=== PATIENT | female | born 1960 ===

== ENCOUNTER 2016-10-13 04:35 | Emergency (ER) | payer OTHER ==
[2016-10-13 04:35] VITALS: BMI 32.1
[2016-10-13 04:42] VITALS: O2SAT 98
--- NOTE | 2016-10-13 05:27 | ED PDOC ---
HPI:Nausea, Vomiting, Diarrhea Time Seen by Provider: 10/13/16 05:21 Chief Complaint (Nursing): GI Problem Chief Complaint (Provider): Vomiting/Diarrhea History Per: Patient History/Exam Limitations: no limitations Onset/Duration Of Symptoms: Days (yesterday at 15:00) Current Symptoms Are (Timing): Still Present Have you had recent travel within the past 21 days to any of the following countries: [place], [place], [place] or [place]?: No Severity: Moderate Associated Symptoms: Chills, Nausea, Vomiting (non-bloody), Diarrhea (watery, non-bloody), Urinary Symptoms (oliguria due to dehydration), Other ((+) weakness ; (-) abdominal pain). denies: Fever Additional Complaint(s): Melani Guevara is a 56 year old female, with a past medical history of DM (Type 2) , Hypercholesterolemia, and HTN, who presents to the emergency department with complaints of non-bloody vomiting and watery diarrhea, that the patient has been experiencing since yesterday at 15:00. Associated chills, generalized weakness, and oliguria are also currently present. Denies abdominal pain or a fever. PMD: Dr. Mcmanus Past Medical History Reviewed: Historical Data, Nursing Documentation, Vital Signs Vital Signs: Last Vital Signs Temp 98.6 F 10/13/16 04:39 Pulse 124 H 10/13/16 04:39 Resp 18 10/13/16 04:39 BP 155/75 H 10/13/16 04:39 Pulse Ox 98 10/13/16 04:39 - Medical History PMH: Arthritis (Rheumatoid), Diabetes (Type 2), HTN, Hypercholesterolemia, Multiple Sclerosis, Rheumatoid Arthritis - Surgical History Surgical History: No Surg Hx - Family History Family History: States: Diabetes, Hypertension - Social History Alcohol: Occasional - Home Medications Home Medications: Ambulatory Orders Medication Instructions Recorded Acetaminophen with Codeine 2 tab PO Q4H PRN #22 tab 07/31/14 [Tylenol with Codeine No. 3 300 mg-30 mg] DiphenhydrAMINE [Benadryl] 25 mg PO Q6H PRN #10 cap 08/21/16 Cyclobenzaprine [Cyclobenzaprine 10 mg PO Q8 PRN #30 tab 09/01/16 HCl] Naproxen [Naprosyn] 500 mg PO BID PRN #30 tab 09/01/16 Ondansetron ODT [Zofran ODT] 4 mg PO Q8 PRN #12 odt 10/13/16 - Allergies Allergies/Adverse Reactions: Allergies Allergy/AdvReac Type Severity Reaction Status Date / Time No Known Allergies Allergy Verified 07/31/14 08:06 Review of Systems ROS Statement: Except As Marked, All Systems Reviewed And Found Negative Constitutional: Positive for: Chills. Negative for: Fever Gastrointestinal: Positive for: Nausea, Vomiting (non-bloody), Diarrhea (watery , non-bloody). Negative for: Abdominal Pain Genitourinary Female: Positive for: Other (oliguria) Neurological: Positive for: Weakness. Negative for: Numbness Physical Exam - Reviewed Nursing Documentation Reviewed: Yes Vital Signs Reviewed: Yes - Physical Exam Appears: Positive for: Non-toxic, No Acute Distress Head Exam: Positive for: ATRAUMATIC, NORMOCEPHALIC Skin: Positive for: Normal Color, Warm, Dry Eye Exam: Positive for: Normal appearance, EOMI ENT: Positive for: Normal ENT Inspection, Other ((+) dry mucous membranes). Negative for: Pharyngeal Erythema, Tonsillar Exudate, Tonsillar Swelling Neck: Positive for: Normal, Painless ROM Cardiovascular/Chest: Positive for: Regular Rate, Rhythm. Negative for: Murmur Respiratory: Positive for: Normal Breath Sounds. Negative for: Respiratory Distress Gastrointestinal/Abdominal: Positive for: Normal Exam, Soft. Negative for: Tenderness Back: Positive for: Normal Inspection. Negative for: L CVA Tenderness, R CVA Tenderness Extremity: Positive for: Normal ROM. Negative for: Tenderness, Swelling Neurologic/Psych: Positive for: Alert, Oriented - Laboratory Results Result Diagrams: 10/13/16 05:46 10/13/16 05:46 - ECG O2 Sat by Pulse Oximetry: 98 (RA) Pulse Ox Interpretation: Normal - Progress Re-evaluation Time: 06:48 Condition: Re-examined, Improved Medical Decision Making Medical Decision Makin:21 Initial Impression: Gastroenteritis w/ dehydration Differential Diagnoses include, but are no limited to viral versus bacterial Gastroenteritis, less likely C. Diff Colitis. Initial Plan: * CBC * CMP * Bentyl 10mg PO * Sodium Chloride 0.9%, 1,000ml IV at 1,000mls/hr * Zofran Inj 4mg IVP * Reevaluation Scribe Attestation: Documented by Arnoldo Garcia, acting as a scribe for Art Delgadillo MD. Provider Scribe Attestation: All medical record entries made by the Scribe were at my direction and personally dictated by me. I have reviewed the chart and agree that the record accurately reflects my personal performance of the history, physical exam, medical decision making, and the department course for this patient. I have also personally directed, reviewed, and agree with the discharge instructions and disposition. Disposition - Clinical Impression Clinical Impression: Gastroenteritis - Patient ED Disposition Is Patient to be Admitted: No Doctor Will See Patient In The: Office Counseled Patient/Family Regarding: Studies Performed, Diagnosis, Need For Followup - Disposition Referrals: [facility] [Outside] Disposition: Routine/Home Disposition Time: 06:48 Condition: GOOD Additional Instructions: Drink plenty of fluids at home. Return for worsening. Follow up with your PCP in 2-3 days. Prescriptions: Ondansetron ODT [Zofran ODT] 4 mg PO Q8 PRN #12 odt PRN Reason: Nausea/Vomiting Instructions: Gastroenteritis (ED)
[2016-10-13] MEDS ORDERED: Sodium Chloride 0.9% 1,000 ML IV STA ×2 (05:33→06:50)
[2016-10-13 05:50] LABS: BASO % 0.2 % (0.0-2.0); EOS # 0.2 K/uL (0.0-0.7); EOS % 3.2 % (0.0-4.0); HEMATOCRIT 39.9 % (34.0-47.0); LYMPH # 0.6 K/uL (1.0-4.3); LYMPH % 8.6 % (20.0-40.0); MEAN CELL VOLUME 87.7 fl (81.0-99.0); MEAN PLATELET VOLUME 8.2 fl (7.2-11.7); MONO # 0.4 K/uL (0.0-0.8); MONO % 6.1 % (0.0-10.0); NEUT # 5.8 K/uL (1.8-7.0); NEUT % 81.9 % (50.0-75.0); NRBC % 0.1 % (0.0-0.0); PLATELET COUNT 300 K/uL (130-400); RED CELL DISTRIBUTION WIDTH 13.2 % (11.5-14.5); WHITE BLOOD COUNT 7.1 K/uL (4.8-10.8)
[2016-10-13 06:01] LABS: ALB/GLOB RATIO 1.1 (1.0-2.1); ALKALINE PHOSPHATASE 113 U/L (38-126); ALT/SGPT 40 U/L (9-52); AST/SGOT 33 U/L (14-36); BILIRUBIN,TOTAL 0.8 mg/dl (0.2-1.3); BLOOD UREA NITROGEN 26 mg/dl (7-17); CALCIUM 9.2 mg/dL (8.4-10.2); CARBON DIOXIDE 27 mmol/L (22-30); CHLORIDE 103 mmol/L (98-107); GFR AFRICAN-AMERICAN > 60; GLUCOSE,RANDOM 137 mg/dL (65-105); POTASSIUM 3.8 MMOL/L (3.6-5.0); SODIUM 147 mmol/l (132-148); TOTAL PROTEIN 7.8 G/DL (6.3-8.2)
[2016-10-13 06:37] LABS: EOSINOPHIL 2 % (0-7); NEUTROPHIL 82 % (42-75); REACTIVE LYMPHOCYTES 1 % (0-0); TOTAL CELLS COUNTED 100
--- NOTE | 2016-10-13 07:13 | ED PDOC ---
- Laboratory Results Result Diagrams: 10/13/16 05:46 10/13/16 05:46 - ECG O2 Sat by Pulse Oximetry: 98 (RA) Pulse Ox Interpretation: Normal Medical Decision Making Medical Decision Making: Time:7:00 Initial impression: Gastroenteritis w/ dehydration differential diagnoses include, but are no limited to viral versus bacterial Gastroenteritis, less likely C. Diff Colitis. labs reviewed, d/w mild to moderate dehydration. Received IVF in ED. Feels better. Scribe Attestation: Documented by Swetha Lance, acting as a scribe for Alejo Colón MD. Provider Scribe Attestation: All medical record entries made by the Scribe were at my direction and personally dictated by me. I have reviewed the chart and agree that the record accurately reflects my personal performance of the history, physical exam, medical decision making, and the department course for this patient. I have also personally directed, reviewed, and agree with the discharge instructions and disposition. Disposition - Clinical Impression Clinical Impression: Gastroenteritis - POA Present On Arrival: None - Disposition Referrals: [facility] [Outside] Disposition: Routine/Home Disposition Time: 07:45 Condition: GOOD Additional Instructions: Drink plenty of fluids at home. Return for worsening. Follow up with your PCP in 2-3 days. Prescriptions: Ondansetron ODT [Zofran ODT] 4 mg PO Q8 PRN #12 odt PRN Reason: Nausea/Vomiting Instructions: Gastroenteritis (ED)
[2016-10-13 07:47] VITALS: BP 132/74; PULSE 74; RESP 19; TEMP 96.3
== END 2016-10-13 07:48 | disposition home or self-care (01) ==
LOC: H.ER 04:35
DX: K52.9 Noninfective gastroenteritis and colitis, unspecified (principal); R11.10 Vomiting, unspecified; R19.7 Diarrhea, unspecified; G35 Multiple sclerosis; E78.00 Pure hypercholesterolemia, unspecified; E11.9 Type 2 diabetes mellitus without complications; I10 Essential (primary) hypertension

== ENCOUNTER 2016-10-14 07:40 | Emergency (ER) | payer OTHER ==
[2016-10-14 07:41] VITALS: BMI 32.1
[2016-10-14 07:45] VITALS: BP 150/82; PULSE 98; TEMP 99.7; O2SAT 100
[2016-10-14 07:54] VITALS: RESP 16
--- NOTE | 2016-10-14 08:04 | ED PDOC ---
HPI: Allergic Reaction Time Seen by Provider: 10/14/16 07:49 Chief Complaint (Nursing): Abnormal Skin Integrity Chief Complaint (Provider): Abnormal Skin Integrity History Per: Patient History/Exam Limitations: no limitations Onset/Duration Of Symptoms: Days (x2 days) Current Symptoms Are (Timing): Still Present Additional Complaint(s): 56 y/o female with a past medical history of Rheumatoid arthritis who presents to the emergency department with itchiness of the ears bilaterally and forehead x2 days. Reports it is unknown of what could have caused her allergic reaction. Denies throat tightness or shortness of breath. PMD: Dr. Robby Mcmanus MD Past Medical History Reviewed: Historical Data, Nursing Documentation, Vital Signs Vital Signs: Last Vital Signs Temp 99.7 F H 10/14/16 07:44 Pulse 98 H 10/14/16 07:44 Resp 16 10/14/16 07:51 BP 150/82 10/14/16 07:44 Pulse Ox 100 10/14/16 07:44 - Medical History PMH: Arthritis (Rheumatoid), Diabetes (Type 2), HTN, Hypercholesterolemia, Multiple Sclerosis, Rheumatoid Arthritis - Surgical History Surgical History: No Surg Hx - Family History Family History: States: Diabetes, Hypertension - Social History Current smoker - smoking cessation education provided: No Alcohol: Social Drugs: Denies - Home Medications Home Medications: Ambulatory Orders Medication Instructions Recorded Acetaminophen with Codeine 2 tab PO Q4H PRN #22 tab 07/31/14 [Tylenol with Codeine No. 3 300 mg-30 mg] DiphenhydrAMINE [Benadryl] 25 mg PO Q6H PRN #10 cap 08/21/16 Cyclobenzaprine [Cyclobenzaprine 10 mg PO Q8 PRN #30 tab 09/01/16 HCl] Naproxen [Naprosyn] 500 mg PO BID PRN #30 tab 09/01/16 Ondansetron ODT [Zofran ODT] 4 mg PO Q8 PRN #12 odt 10/13/16 Cetirizine HCl [Zyrtec] 10 mg PO DAILY #10 capsule 10/14/16 predniSONE [predniSONE Tab] 10 mg PO TID #15 tab 10/14/16 - Allergies Allergies/Adverse Reactions: Allergies Allergy/AdvReac Type Severity Reaction Status Date / Time No Known Allergies Allergy Verified 07/31/14 08:06 Review of Systems ROS Statement: Except As Marked, All Systems Reviewed And Found Negative ENT: Positive for: Throat Pain (Throat tightness), Other (Itchiness of forehead region and ears bilaterally) Respiratory: Negative for: Shortness of Breath Physical Exam - Reviewed Nursing Documentation Reviewed: Yes Vital Signs Reviewed: Yes - Physical Exam Appears: Positive for: Non-toxic, No Acute Distress Head Exam: Positive for: ATRAUMATIC, NORMOCEPHALIC Skin: Positive for: Warm, Dry. Negative for: Normal Color (Erythema to left frontal forehead region) ENT: Positive for: Other (Mild erythema and swelling to lobes of both ears ). Negative for: Pharyngeal Erythema (no swelling of the throat) Neck: Positive for: Normal, Supple Cardiovascular/Chest: Positive for: Regular Rate, Rhythm. Negative for: Murmur Respiratory: Positive for: Normal Breath Sounds. Negative for: Accessory Muscle Use, Respiratory Distress Neurologic/Psych: Positive for: Alert, Oriented - ECG O2 Sat by Pulse Oximetry: 100 (RA) Pulse Ox Interpretation: Normal - Critical Care Notes:: Time: 7:49 Initial impression: Allergic reaction unknown allergen Initial plan: --Prednisone 20 mg PO Time: 8:08 Upon provider reevaluation patient is feeling better, is medically stable, and requires no further treatment in the ED at this time. Patient will be discharged home with Rx for Zyrtec 10 mg and Prednisone 10 mg. Counseling was provided and all questions were answered regarding diagnosis and need for follow up with Referred clinics. There is agreement to discharge plan. Return if symptoms persist or worsen. Scribe Attestation: Documented by Swetha Lance, acting as a scribe for Harjinder Gregory MD. Provider Scribe Attestation: All medical record entries made by the Scribe were at my direction and personally dictated by me. I have reviewed the chart and agree that the record accurately reflects my personal performance of the history, physical exam, medical decision making, and the department course for this patient. I have also personally directed, reviewed, and agree with the discharge instructions and disposition. Disposition - Clinical Impression Clinical Impression: Allergic reaction Counseled Patient/Family Regarding: Studies Performed, Rx Given - Disposition Referrals: [facility] [Outside] Disposition: Against Medical Advice Disposition Time: 08:08 Condition: FAIR Prescriptions: Cetirizine HCl [Zyrtec] 10 mg PO DAILY #10 capsule predniSONE [predniSONE Tab] 10 mg PO TID #15 tab Instructions: General Allergic Reaction (ED)
== END 2016-10-14 08:08 | disposition home or self-care (01) ==
LOC: H.ER 07:40
DX: T78.40XA Allergy, unspecified, initial encounter (principal); E11.9 Type 2 diabetes mellitus without complications; E78.00 Pure hypercholesterolemia, unspecified; G35 Multiple sclerosis; I10 Essential (primary) hypertension

== ENCOUNTER 2018-04-27 09:01 | Emergency (ER) | payer OTHER ==
[2018-04-27 09:01] VITALS: BMI 32.1
[2018-04-27 09:06] VITALS: BP 136/81; PULSE 86; RESP 17; TEMP 97.8; O2SAT 97
--- NOTE | 2018-04-27 09:27 | ED PDOC ---
HPI: Allergic Reaction Time Seen by Provider: 04/27/18 09:22 Chief Complaint (Nursing): Allergic Reaction Chief Complaint (Provider): Allergic reaction History Per: Patient History/Exam Limitations: no limitations Onset/Duration Of Symptoms: Days Current Symptoms Are (Timing): Still Present Possible Cause: Unknown Associated Symptoms: Skin Rash, Itching, Redness. denies: Swelling, Dyspnea, Trouble Swallowing, Chest Pain Home/EMS Treatment: None Additional History Per: Patient Additional Complaint(s): 57yo female, history of diabetes, high cholesterol, MS, rheumatoid arthritis, comes to ER reporting an itchy rash to her bilateral axilla, across her mid- back, below her breasts and on her abdomen. Patient denies any new food, lotions, clothes, or detergents; patient does state she has been on Augmentin due to a dental issue but reports she started the antibiotic regimen on 04/14. Otherwise, she denies any fevers, throat or tongue swelling, chest pain, shortness of breath, abdominal pain, or vomiting. She has no additional complaints. PMD: Dr. Mcmanus Past Medical History Reviewed: Historical Data, Nursing Documentation, Vital Signs Vital Signs: Last Vital Signs Temp 97.8 F 04/27/18 09:05 Pulse 86 04/27/18 09:05 Resp 17 04/27/18 09:05 BP 136/81 04/27/18 09:05 Pulse Ox 97 04/27/18 09:05 - Medical History PMH: Arthritis (Rheumatoid), Diabetes (Type 2), HTN, Hypercholesterolemia, Multiple Sclerosis, Rheumatoid Arthritis - Surgical History Surgical History: No Surg Hx - Family History Family History: States: Diabetes, Hypertension - Living Arrangements Living Arrangements: With Family - Home Medications Home Medications: Ambulatory Orders Medication Instructions Recorded Acetaminophen with Codeine 2 tab PO Q4H PRN #22 tab 07/31/14 [Tylenol with Codeine No. 3 300 mg-30 mg] DiphenhydrAMINE [Benadryl] 25 mg PO Q6H PRN #10 cap 08/21/16 Cyclobenzaprine [Cyclobenzaprine 10 mg PO Q8 PRN #30 tab 09/01/16 HCl] Naproxen [Naprosyn] 500 mg PO BID PRN #30 tab 09/01/16 Ondansetron ODT [Zofran ODT] 4 mg PO Q8 PRN #12 odt 10/13/16 Cetirizine HCl [Zyrtec] 10 mg PO DAILY #10 capsule 10/14/16 predniSONE [predniSONE Tab] 10 mg PO TID #15 tab 10/14/16 Dicyclomine [Bentyl] 20 mg PO TID #21 tab 10/17/16 DiphenhydrAMINE [Benadryl] 25 mg PO TID PRN 5 Days cap 04/27/18 predniSONE [predniSONE Tab] 20 mg PO BID 5 Days tab 04/27/18 - Allergies Allergies/Adverse Reactions: Allergies Allergy/AdvReac Type Severity Reaction Status Date / Time No Known Allergies Allergy Verified 10/16/16 22:03 Review of Systems ROS Statement: Except As Marked, All Systems Reviewed And Found Negative Constitutional: Negative for: Fever, Chills ENT: Negative for: Throat Swelling Cardiovascular: Negative for: Chest Pain Respiratory: Negative for: Shortness of Breath Gastrointestinal: Negative for: Vomiting, Abdominal Pain Skin: Positive for: Rash Physical Exam - Reviewed Nursing Documentation Reviewed: Yes - Physical Exam Appears: Positive for: Non-toxic, No Acute Distress Head Exam: Positive for: ATRAUMATIC, NORMAL INSPECTION, NORMOCEPHALIC Skin: Positive for: Warm, Dry, Rash (patches of blanching erythema and urticaria noted to bilateral axilla, upper and mid-abdomen, and back. Small patch of blanching erythema and uritcaria noted to right lower face as well.) Eye Exam: Positive for: Normal appearance, EOMI, PERRL ENT: Positive for: Normal ENT Inspection. Negative for: Other (throat swelling; tongue swelling) Neck: Positive for: Normal, Supple Cardiovascular/Chest: Positive for: Regular Rate, Rhythm Respiratory: Positive for: Normal Breath Sounds. Negative for: Wheezing Gastrointestinal/Abdominal: Positive for: Normal Exam, Soft Back: Negative for: L CVA Tenderness, R CVA Tenderness, Vertebral Tenderness Extremity: Positive for: Normal ROM. Negative for: Pedal Edema, Deformity Neurologic/Psych: Positive for: Alert, Oriented. Negative for: Motor/Sensory Deficits - ECG O2 Sat by Pulse Oximetry: 97 (RA) Pulse Ox Interpretation: Normal - Progress ED Course And Treament: Impression: Rash Plan: -- Benadryl 50mg PO -- Prednisone 60mg PO Patient to be discharged home with prescription for steroids and Benadryl. Patient informed to keep an allergy journal to r/o possible allergen. Patient instructed to follow up with PMD as well as an mess attendant crew. Scribe Attestation: Documented by Kendra Castillo, acting as a scribe for Tadeo Hernandez MD Provider Scribe Attestation: All medical record entries made by the Scribe were at my direction and personally dictated by me. I have reviewed the chart and agree that the record accurately reflects my personal performance of the history, physical exam, medical decision making, and the department course for this patient. I have also personally directed, reviewed, and agree with the discharge instructions and disposition. Disposition - Clinical Impression Clinical Impression: Acute allergic reaction - Patient ED Disposition Is Patient to be Admitted: No - Disposition Referrals: Robby Mcmanus [Primary Care Provider] - 04/29/18 Disposition: Routine/Home Disposition Time: 09:28 Condition: STABLE Additional Instructions: Return if not better in 3 days. Prescriptions: DiphenhydrAMINE [Benadryl] 25 mg PO TID PRN 5 Days cap PRN Reason: Itching / Pruritus predniSONE [predniSONE Tab] 20 mg PO BID 5 Days tab Instructions: Hives
== END 2018-04-27 10:15 | disposition home or self-care (01) ==
LOC: SUPCPDRO 09:01 → H.ER 09:01
DX: T78.40XA Allergy, unspecified, initial encounter (principal); E11.9 Type 2 diabetes mellitus without complications

== ENCOUNTER 2018-05-07 16:29 | Emergency (ER) | payer OTHER ==
[2018-05-07 16:30] VITALS: BMI 32.1
[2018-05-07 16:38] VITALS: TEMP 98.1
[2018-05-07] MEDS ORDERED: Sodium Chloride 0.9% 1,000 ML IV STA (16:58)
--- NOTE | 2018-05-07 17:20 | ED PDOC ---
HPI:Nausea, Vomiting, Diarrhea Time Seen by Provider: 05/07/18 16:45 Chief Complaint (Nursing): GI Problem Chief Complaint (Provider): Vomiting and Diarrhea History Per: Patient Onset/Duration Of Symptoms: Hrs (6x) Current Symptoms Are (Timing): Still Present Have you had recent travel within the past 21 days to any of the following countries: [place], [place], [place] or [place]?: No Additional Complaint(s): Melani Guevara, a 57 year old female with a past medical history of hypertension, diabetes, rheumatoid arthritis, and multiple sclerosis, presents t o the ED complaining of non bilious, non bloody vomiting and watery, non bloody diarrhea onset this morning associated with light headedness, shaky chills and a brief abdominal pain described as cramping which has resolved. Patient reports she had x5 episodes of vomiting and x4 episode of diarrhea. She has been taking amoxicillin for x6 days for a root canal surgery. She denies any sick contacts o r recent travel. No further medical complaints. PCP: Robby Mcmanus Past Medical History Reviewed: Historical Data, Nursing Documentation, Vital Signs Vital Signs: Last Vital Signs Temp 98.1 F 05/07/18 16:35 Pulse 101 H 05/07/18 16:35 Resp 18 05/07/18 16:35 BP 125/81 05/07/18 16:35 Pulse Ox 99 05/07/18 16:35 - Medical History PMH: Arthritis (Rheumatoid), Diabetes (Type 2), HTN, Hypercholesterolemia, Multiple Sclerosis, Rheumatoid Arthritis - Surgical History Other surgeries: tubal ligation - Family History Family History: States: Diabetes, Hypertension - Social History Current smoker - smoking cessation education provided: No Alcohol: None Drugs: Denies - Home Medications Home Medications: Ambulatory Orders Medication Instructions Recorded Acetaminophen with Codeine 2 tab PO Q4H PRN #22 tab 07/31/14 [Tylenol with Codeine No. 3 300 mg-30 mg] DiphenhydrAMINE [Benadryl] 25 mg PO Q6H PRN #10 cap 08/21/16 Cyclobenzaprine [Cyclobenzaprine 10 mg PO Q8 PRN #30 tab 09/01/16 HCl] Naproxen [Naprosyn] 500 mg PO BID PRN #30 tab 09/01/16 Ondansetron ODT [Zofran ODT] 4 mg PO Q8 PRN #12 odt 10/13/16 Cetirizine HCl [Zyrtec] 10 mg PO DAILY #10 capsule 10/14/16 predniSONE [predniSONE Tab] 10 mg PO TID #15 tab 10/14/16 Dicyclomine [Bentyl] 20 mg PO TID #21 tab 10/17/16 DiphenhydrAMINE [Benadryl] 25 mg PO TID PRN 5 Days cap 04/27/18 predniSONE [predniSONE Tab] 20 mg PO BID 5 Days tab 04/27/18 Famotidine [Pepcid] 40 mg PO DAILY PRN #10 tab 05/07/18 Ondansetron ODT [Zofran ODT] 1 odt PO Q6 PRN #20 odt 05/07/18 Saccharomyces Boulardi [Florastor] 500 mg PO BID #28 cap 05/07/18 - Allergies Allergies/Adverse Reactions: Allergies Allergy/AdvReac Type Severity Reaction Status Date / Time No Known Allergies Allergy Verified 05/07/18 16:34 Review of Systems ROS Statement: Except As Marked, All Systems Reviewed And Found Negative Constitutional: Positive for: Chills (shaky) Cardiovascular: Positive for: Light Headedness Gastrointestinal: Positive for: Vomiting (x5 non bilious non bloody), Abdominal Pain (cramp, resolved), Diarrhea (x4 watery non bloody) Physical Exam - Reviewed Nursing Documentation Reviewed: Yes Vital Signs Reviewed: Yes - Physical Exam Appears: Positive for: Non-toxic, No Acute Distress Head Exam: Positive for: ATRAUMATIC, NORMAL INSPECTION, NORMOCEPHALIC Skin: Positive for: Normal Color, Warm, Dry Eye Exam: Positive for: EOMI, PERRL ENT: Positive for: Pharynx Is (clear), Other (mildly tacky mucous membranes) Neck: Positive for: Painless ROM, Trachea Midline Cardiovascular/Chest: Positive for: Regular Rate, Rhythm. Negative for: Murmur Respiratory: Positive for: Normal Breath Sounds. Negative for: Respiratory Distress Gastrointestinal/Abdominal: Positive for: Bowel Sounds, Soft. Negative for: Tenderness, Mass, Distended, Guarding, Rebound Back: Positive for: Normal Inspection. Negative for: Decreased ROM Extremity: Positive for: Normal ROM (upper and lower extremities). Negative for: Deformity, Swelling Lymphatic: Negative for: Adenopathy Neurologic/Psych: Positive for: Alert, Oriented. Negative for: Motor/Sensory Deficits - Laboratory Results Result Diagrams: 05/07/18 17:43 05/07/18 17:43 - ECG O2 Sat by Pulse Oximetry: 99 (RA) Pulse Ox Interpretation: Normal Medical Decision Making Medical Decision Making: Time: 16:45 Initial Impression: vomiting and diarrhea. Differential diagnosis includes but not limited to gastroenteritis, antibiotics associated diarrhea, cecal colitis, electrolyte abnormality and dehydration. Initial Plan: --Labs --Zofran IV 8 mg --Stool culture --UA --C Diff Toxin A B --Revaluate 19:30 Patient is getting better with no vomiting episodes in the ED. The labs showed no clinically significant abnormalities. Upon provider reevaluation patient is feeling better, is medically stable, and requires no further treatment in the ED at this time. Patient will be discharged home . Counseling was provided and all questions were answered regarding diagnosis and need for follow up with PMD in 24 to 48 hours. There is agreement to discharge plan. Return if symptoms persist or worsen. - ---- Scribe Attestation: Documented by Enrique Martinez & Larry Robin, acting as a scribe for Chantal Yoder MD. Provider Scribe Attestation: All medical record entries made by the Scribe were at my direction and pers onally dictated by me. I have reviewed the chart and agree that the record accurately reflects my personal performance of the history, physical exam, medical decision making, and the department course for this patient. I have also personally directed, reviewed, and agree with the discharge instructions and disposition. Disposition - Clinical Impression Clinical Impression: Vomiting and diarrhea - Patient ED Disposition Is Patient to be Admitted: No Counseled Patient/Family Regarding: Studies Performed, Diagnosis, Need For Followup, Rx Given - Disposition Referrals: Robby Mcmanus [Family Provider] - 05/08/18 Disposition: Routine/Home Disposition Time: 19:00 Condition: IMPROVED Prescriptions: Famotidine [Pepcid] 40 mg PO DAILY PRN #10 tab PRN Reason: reflux Ondansetron ODT [Zofran ODT] 1 odt PO Q6 PRN #20 odt PRN Reason: Nausea/Vomiting Saccharomyces Boulardi [Florastor] 500 mg PO BID #28 cap Instructions: Diarrhea in Adolescents and Adults, Nausea and Vomiting, Adult (DC) Forms: [facility] ED School/Work Excuse
[2018-05-07 17:26] LABS: VENOUS BLOOD GAS BASE EXCESS 3.5 mmol/L (0.0-2.0); VENOUS BLOOD GAS PCO2 47 mmHg (40-60); VENOUS BLOOD GAS PO2 23 mm/Hg (30-55)
[2018-05-07 17:55] LABS: BASO % 0.4 % (0.0-2.0); EOS # 0.3 K/uL (0.0-0.7); EOS % 3.8 % (0.0-4.0); HEMOGLOBIN 14.2 g/dL (12.0-16.0); LYMPH # 0.7 K/uL (1.0-4.3); LYMPH % 8.6 % (20.0-40.0); MEAN CORPUSCULAR HEMOGLOBIN 29.3 pg (27.0-31.0); MEAN CORPUSCULAR HGB CONC 33.2 g/dL (33.0-37.0); MEAN PLATELET VOLUME 8.3 fl (7.2-11.7); MONO # 0.4 K/uL (0.0-0.8); MONO % 4.7 % (0.0-10.0); NEUT # 6.7 K/uL (1.8-7.0); NEUT % 82.5 % (50.0-75.0); NRBC % 0.1 % (0.0-0.0); PLATELET COUNT 372 K/uL (130-400); RBC 4.84 Mil/uL (3.80-5.20); RED CELL DISTRIBUTION WIDTH 13.5 % (11.5-14.5); WHITE BLOOD COUNT 8.1 K/uL (4.8-10.8)
[2018-05-07 18:06] LABS: ALB/GLOB RATIO 1.2 (1.0-2.1); ALBUMIN 4.4 g/dL (3.5-5.0); ALT/SGPT 47 U/L (9-52); AST/SGOT 40 U/L (14-36); BLOOD UREA NITROGEN 24 mg/dl (7-17); CALCIUM 9.6 mg/dL (8.4-10.2); GFR NON-AFRICAN AMERICAN > 60; LIPASE 55 U/L (23-300)
[2018-05-07 18:26] LABS: SQUAMOUS EPITHIAL 1 /hpf (0-5); URINE BILIRUBIN NEGATIVE (NEGATIVE); URINE BLOOD NEGATIVE (NEGATIVE); URINE CLARITY CLOUDY (Clear); URINE COLOR YELLOW (YELLOW); URINE GLUCOSE (UA) NEG (Normal); URINE LEUKOCYTE ESTERASE TRACE Leu/uL (Negative); URINE PROTEIN NEGATIVE (NEGATIVE); URINE UROBILINOGEN 0.2-1.0 mg/dL (0.2-1.0)
[2018-05-07 19:16] VITALS: BP 127/69; PULSE 85; RESP 17
[2018-05-07 21:32] VITALS: O2SAT 98
[2018-05-07 21:45] LABS: BANDS 2 % (0-2); EOSINOPHIL 3 % (0-7); LYMPHOCYTE 9 % (20-50); MONOCYTE 5 % (0-10); NEUTROPHIL 81 % (42-75); PLATELET ESTIMATE NORMAL (NORMAL); TOTAL CELLS COUNTED 100
[2018-05-07 21:46] LABS: HYPOCHROMIC SLIGHT; TOXIC GRANULATION PRESENT
== END 2018-05-07 20:45 | disposition home or self-care (01) ==
LOC: H.ER 16:29
DX: R11.10 Vomiting, unspecified (principal); R19.7 Diarrhea, unspecified; E11.9 Type 2 diabetes mellitus without complications; E78.00 Pure hypercholesterolemia, unspecified; G35 Multiple sclerosis; I10 Essential (primary) hypertension; Z79.899 Other long term (current) drug therapy
CPT/HCPCS: 80053; 81003; 82803; 82948; 83690; 83735; 84100; 85025; 96360; 99284; J2405; J7030

== ENCOUNTER 2018-09-19 09:22 | Emergency (ER) | payer OTHER ==
[2018-09-19 10:13] VITALS: BMI 68.1
--- NOTE | 2018-09-19 10:17 | ED PDOC ---
HPI: Skin/Bite Injury Time Seen by Provider: 09/19/18 09:46 History Per: Patient History/Exam Limitations: no limitations Onset/Duration Of Symptoms: Intermittent Episodes (x months), Gradual Current Symptoms Are (Timing): Intermittent Episodes Quality Of Symptoms: Itching Severity: Mild Additional Complaint(s): 58yo female with long history skin rashes/allergy symptoms presents c/o itchy rash to L dorsum hand, L face and ankle, denies SOB, cough, swelling or weakness. Has used hydrocortisone 2.5% without much relief. In past has been to allergists without much resolution. Requesting medrol dose humphrey. Past Medical History - Medical History PMH: Arthritis (Rheumatoid), Diabetes (Type 2), HTN, Hypercholesterolemia, Multiple Sclerosis, Rheumatoid Arthritis - Family History Family History: States: Diabetes, Hypertension - Home Medications Home Medications: Ambulatory Orders Medication Instructions Recorded Acetaminophen with Codeine 2 tab PO Q4H PRN #22 tab 07/31/14 [Tylenol with Codeine No. 3 300 mg-30 mg] DiphenhydrAMINE [Benadryl] 25 mg PO Q6H PRN #10 cap 08/21/16 Cyclobenzaprine [Cyclobenzaprine 10 mg PO Q8 PRN #30 tab 09/01/16 HCl] Naproxen [Naprosyn] 500 mg PO BID PRN #30 tab 09/01/16 Ondansetron ODT [Zofran ODT] 4 mg PO Q8 PRN #12 odt 10/13/16 Cetirizine HCl [Zyrtec] 10 mg PO DAILY #10 capsule 10/14/16 predniSONE [predniSONE Tab] 10 mg PO TID #15 tab 10/14/16 Dicyclomine [Bentyl] 20 mg PO TID #21 tab 10/17/16 DiphenhydrAMINE [Benadryl] 25 mg PO TID PRN 5 Days cap 04/27/18 predniSONE [predniSONE Tab] 20 mg PO BID 5 Days tab 04/27/18 Famotidine [Pepcid] 40 mg PO DAILY PRN #10 tab 05/07/18 Ondansetron ODT [Zofran ODT] 1 odt PO Q6 PRN #20 odt 05/07/18 Saccharomyces Boulardi [Florastor] 500 mg PO BID #28 cap 05/07/18 Hydrocortisone 2.5% 1 applic TOP BID 7 Days #1 tube 09/19/18 Hydroxyzine HCl 25 mg PO Q6 PRN #15 tablet 09/19/18 Methylprednisolone [Medrol Dose 4 mg PO DAILY #21 mg 09/19/18 Pack (21 tabs)] - Allergies Allergies/Adverse Reactions: Allergies Allergy/AdvReac Type Severity Reaction Status Date / Time No Known Allergies Allergy Verified 05/07/18 16:34 Physical Exam - Reviewed Nursing Documentation Reviewed: Yes Vital Signs Reviewed: Yes - Physical Exam Appears: Positive for: Well, Non-toxic Head Exam: Positive for: ATRAUMATIC Skin: Positive for: Normal Color, Rash (blanching erythema/ mild urticaria to L dorsum hand, R ankle, trace to L upper neck) Cardiovascular/Chest: Positive for: Regular Rate, Rhythm Respiratory: Positive for: Normal Breath Sounds Gastrointestinal/Abdominal: Negative for: Tenderness Extremity: Positive for: Normal ROM. Negative for: Deformity, Swelling Neurological/Psych: Positive for: Awake, Alert, Normal Tone Disposition - Clinical Impression Clinical Impression: Skin rash - Disposition Referrals: Robby Mcmanus [Staff Provider] - Disposition Time: 10:50 Condition: STABLE Additional Instructions: See allergy doctor and PMD in next week for further testing. Return to ER for any new symptoms. take medications as directed. Prescriptions: Hydrocortisone 2.5% 1 applic TOP BID 7 Days #1 tube Hydroxyzine HCl 25 mg PO Q6 PRN #15 tablet PRN Reason: Allergy Symptoms Methylprednisolone [Medrol Dose Pack (21 tabs)] 4 mg PO DAILY #21 mg Instructions: Skin Rash (DC), Topical Corticosteroid Medicines Forms: [employer] (Somali)
[2018-09-19 10:46] VITALS: BP 118/94; PULSE 90
[2018-09-19 10:57] VITALS: RESP 19; TEMP 97.4; O2SAT 98
== END 2018-09-19 10:58 | disposition home or self-care (01) ==
LOC: H.ER 09:22
DX: R21 Rash and other nonspecific skin eruption (principal); E11.9 Type 2 diabetes mellitus without complications